=== PATIENT | male | born 1940 | race Caucasian/White ===

== ENCOUNTER 2021-08-04 19:53 | Emergency (ER) | payer MEDICARE, OTHER, SELFPAY ==
--- NOTE | ~2021-08-04 | CT_ITS ---
EXAMINATION: CT CHEST WITHOUT CONTRAST CLINICAL INFORMATION: Abnormal right lung apex noted on a recent CT of the cervical spine done earlier today. COMPARISON: CT cervical spine done earlier today. TECHNIQUE: Multidetector volumetric CT imaging of the chest was done. Axial MIP volume rendering provided. Sagittal and coronal reformatted images were obtained. This CT examination was performed using dose optimization techniques as appropriate, variously including the following: *Automated exposure control *Adjustment of mA and/or kV according to patient size (this includes techniques or standardized protocols for targeted exams where dose is matched to indication/reason for exam; i.e. extremities or head) *Use of iterative reconstruction technique DLP: 254 mGy-cm FINDINGS: LUNGS: Again noted irregular opacity in the right apex measuring approximately 1.8 x 1.2 cm (5:114) with linear bands that communicate to the pleural space and internal lucencies. 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 There is a background of centrilobular and paraseptal emphysematous changes with an upper lobe predominance. In the right major fissure but there are a few 0.3 cm nodularities (5:177) likely representing pulmonary lymph nodes. In the periphery of the right lower lobe there is a 0.3 cm subpleural nodularity (5:431) which could also represent a pleural lymph node or a focal area of pleural thickening. In the lingula there is a 0.2 cm pulmonary nodule (5:358). No focal airspace opacities. The main airways are patent. MEDIASTINUM: Normal heart size. No pericardial effusion. There are a few prominent but no pathologically enlarged mediastinal lymph nodes, for instance measuring up to 0.7 cm in maximum short axis in the lower pretracheal region (3:28). Coronary calcifications and atherosclerotic disease of the thoracic aorta which is of normal diameter. Normal appearance of the thyroid gland. PLEURA: Biapical pleural thickening/scarring. No pleural effusion or pneumothorax. AXILLA: Indeterminate calcified nodule in the superficial soft tissues of the left axillary region (3:19). No axillary lymphadenopathy or chest wall masses. UPPER ABDOMEN: Small hiatal hernia. There is a water density cyst in the right hepatic lobe measuring 1.5 cm (3:59). There are several additional too small to characterize hypodensities, for instance as identified in the left lobe on image 56 of series 3 which statistically also likely to represent simple cysts. OSSEOUS STRUCTURES: No acute or aggressive osseous abnormalities. Thoracic spondylosis. CT/CT chest wo con IMPRESSION: Irregular opacity in the right apex could represent a focal area of parenchymal scarring given adjacent architectural distortion and continuity to the pleural surfaces. However, an underlying neoplasia cannot be entirely excluded. If tissue sampling is not obtained, consider further evaluation with a short-term follow-up chest CT or a PET/CT. There is a 0.2 cm lingular nodule which could be also follow-up with the above recommend a study. 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 Background of emphysematous changes. Small hiatal hernia. Too small to characterize liver hypodensities which statistically are likely to represent simple cysts. If definite characterization is desired, further evaluation could be obtained with a dedicated liver ultrasound.
--- NOTE | ~2021-08-04 | CT_ITS ---
EXAMINATION: HEAD CT WITHOUT CONTRAST MAXILLOFACIAL CT WITHOUT CONTRAST CERVICAL SPINE CT WITHOUT CONTRAST CLINICAL INFORMATION: Fall, hit face. COMPARISON: None. TECHNIQUE: Contiguous axial imaging of the head was performed without the administration of IV contrast. Axial multidetector volumetric images were also performed through the facial bones without contrast from the frontal sinuses through the mandible. Multiplanar reconstructed images in coronal and sagittal orientations were submitted. Imaging of the cervical spine. Sagittal and coronal reconstructions. DOSE: 1832 mGy-cm FINDINGS: HEAD: There are foci of increased attenuation in the parenchyma of the left frontal lobe, the left parietal lobe. There are foci of increased attenuation in the harris matter of the right parietal lobe. This could represent petechial hemorrhages secondary to diffuse axonal injury. No extra-axial fluid collections. Harris to white matter differentiation is well preserved. There is cerebral volume loss with sulcal and ventricular prominence. Patchy periventricular and deep white matter hypodensities on chronic microangiopathic changes. Status post lens extraction. There is frontal soft tissue swelling and soft tissue hematoma. Small focus of increased density present in the soft tissues in this region. Partial opacification of the left mastoid air cells. Right mastoid air cells are aerated. No significant fluid opacification in the paranasal sinuses. MAXILLOFACIAL: There is bony irregularity of the nasal bones, with surrounding soft tissue swelling, concerning for an acute fracture. There is left periorbital soft tissue swelling. There is undulation/depression of the frontal and the posterior lateral wall of the left maxillary sinus. The findings are suspicious for sequela of trauma/fracture. There is no significant fluid in the left maxillary sinus. In the absence of fluid within the sinus, the fractures may be nonacute. No acute fractures seen of the mandible. Normal articulation of the temporomandibular joints. The pterygoid plates, zygomatic arches appear intact. The bony orbits appear intact. CERVICAL SPINE: Craniocervical articulations are maintained. Predental space is maintained. There is increased lordotic curvature of the cervical spine. Mild retrolisthesis of C3 on C4. Mild anterolisthesis of C6 on C7. No acute cervical spinal fractures seen. Multilevel disc degenerative changes, including moderate disc degeneration at C7-T1. No prevertebral soft tissue swelling. No adenopathy seen. Moderate emphysematous changes in the lung apices, more prominent on the right. There is airspace opacity, architectural distortion and spiculated appearance of the parenchyma in the right lung apex. There are no prior images available for comparison. CT/CT cervical spine wo con IMPRESSION: CT HEAD: 1. Multiple foci of increased attenuation within the parenchyma of the left frontal lobe, left parietal lobe and the right parietal lobe. This could represent petechial hemorrhages secondary to diffuse axonal injury. Consider further evaluation with MRI. Alternately, recommend short-term follow-up CT for reassessment. Neurology consultation as clinically warranted. 2. Partial opacification of the left mastoid air cells. CT FACIAL BONES: 1. Findings suspicious for nasal bone fracture. 2. Dysmorphic appearance of the frontal and posterolateral wall of the left maxillary sinus, with bony depression and undulation. Findings are suggestive of sequela of trauma/fracture. Given the absence of significant fluid in the left maxillary sinus, these findings may be nonacute. Clinically correlate. Further evaluation with MRI as clinically warranted. Surgical consultation as clinically warranted. CT CERVICAL SPINE: 1. No acute cervical spine fracture is seen. 2. Increased lordotic curvature of the cervical spine. Cervical spondylosis, detailed above. 3. Moderate emphysema in the right lung apex, with prominent airspace opacification with spiculated appearance and architectural distortion. Neoplastic etiology cannot be excluded. There are no priors available for comparison. Correlate with prior clinical history or imaging available. Recommend further evaluation with CT chest. This result was discussed with SHUKRI Cosby at 11:00 PM on 08/04/2021 and it was ascertained that the content and urgency of the report was understood at the time of direct communication.
[2021-08-04 20:11] VITALS: BP 134/71; PULSE 79; RESP 16; TEMP 36.5; O2SAT 97; BMI 25.1
--- NOTE | 2021-08-04 20:40 | ED_ITS ---
HPI - Fall General Chief Complaint: Fall Stated Complaint: FALL Time Seen by Provider: 08/04/21 20:31 Source: patient Mode of arrival: EMS Limitations: no limitations History of Present Illness HPI Narrative: 81-year-old male presents via EMS for facial injury due to fall that occurred just prior to arrival. Patient states he [place] the [place], and his legs became tired. He was going down a ramp, and he fell forward onto his face because his legs could not keep up. He had no chest pain, no shortness of breath, no dizziness, no lightheadedness. Patient is on aspirin but no other blood thinners. Denies headache, visual changes, teeth malocclusion, neck pain. Patient presents in C-collar, and has laceration to his bridge of his nose, his upper lip, and a hematoma on his frontal forehead. MD complaint: fall Onset (ago): hour(s) (1) Fall from: standing Fall witnessed: yes, by bystander Place fall occurred: other Loss of consciousness: none Prolonged down time: no Symptoms prior to fall: none Context: tripped/slipped Location of injury: face Severity: mild Severity scale (1-10): 3 Associated symptoms (after fall): denies, headache, neck pain, numbness, weakness, chest pain, shortness of breath, abdominal pain, hematuria, unable to walk, lightheaded, vertigo and confusion Related Data Allergies Allergy/AdvReac Type Severity Reaction Status Date / Time No Known Allergies Allergy Verified 08/04/21 20:38 Review of Systems Constitutional: Constitutional: Denies body ache(s), Denies chills, Denies fatigue, Denies fever(s), Denies headache(s), Denies malaise and Denies weakness Eyes: Eyes: Denies diplopia ENT: Denies vertigo, Denies dizziness, Denies otalgia, Denies headache(s), Denies mouth pain, Denies neck pain, Denies post nasal drip, Denies sinus pain, Denies sinus pressure, Denies sore throat and Denies throat swelling Cardiovascular: Cardiovascular: Denies chest pain, Denies syncope, Denies leg edema, Denies lightheadedness, Denies Loss of Consciousness, Denies palpitations and Denies dyspnea Respiratory: Respiratory: Denies chest congestion, Denies cough and Denies dyspnea Gastrointestinal: Gastrointestinal: Denies abdominal pain, Denies hem atochezia, Denies constipation, Denies diarrhea and Denies vomiting Musculoskeletal: Musculoskeletal: Reports no additional musculoskeletal compla ints and Denies neck pain Integumentary/Breasts: Comments: Lacerations to face Neurologic: Denies Abnormal speech present, Denies confusion, Denies vertigo, Denies dizziness, Denies syncope, Denies headache(s), Denies Sensory deficit (Neuro) and Denies weakness Psychiatric: Psychiatric: Denies anxiety, Denies confusion and Denies depressi on Endocrine: Endocrine: Denies fatigue and Denies palpitations Allergic/Immunologic: Allergic/Immunologic: Denies throat swelling PMFSH Past Medical History Medical History (Updated 08/05/21 @ 02:11 by SHUKRI Cosby) No known health problems Social History Social History Advance Directives: No Advance Directives Information Provided: Yes Physical Exam Vital Signs: Vital Signs: Last Vital Signs Temp 97.9 F 08/05/21 00:33 Pulse 73 08/05/21 00:33 Resp 16 08/05/21 00:33 BP 125/67 08/05/21 00:33 Pulse Ox 96 08/05/21 00:33 BMI result Body Mass Index 25.1 Const: General: comfortable, no acute distress, well developed, alert and awake; No confusion Nutritional Appearance: well nourished Orientation/consciousness: patient oriented x3 and No confusion Limitations: no limitations HENMT: Head: Yes normal to inspection, Yes normocephalic and Yes atraumatic Ears: hearing grossly normal bilaterally, external ears normal, TM's normal bilaterally and EAC's normal General nose exam: Normal external nose present Face and sinus: Yes normal facial exam and Yes sinuses nontender Mouth: Normal oral and palatal mucosa present Throat: Yes posterior oropharynx normal Eyes: Conjunctivae: conjunctivae normal Pupils: Equal, round and reactive pupils present EOM: EOMs intact bilaterally and No Nystagmus present Neck: Neck: Yes full ROM, Yes no lymphadenopathy and Yes supple Resp: Effort & Inspection: normal respiratory effort and able to speak in complete sentences Auscultation: clear to auscultation bilaterally, no crackles, no rales, no rhonchi and no wheezes Cardio: Rate: regular rate Rhythm: regular rhythm Heart sounds: S1 normal heart sound present and S2 normal heart sound present GI: Inspection: Yes normal to inspection Palpation (GI): Soft to palpation, nontender, no guarding and not rigid Percussion: Yes normal to percussion Auscultation: normal bowel sounds Skin: Other: Laceration to bridge of nose, laceration to upper lip, hematoma to right forehead Neuro: Other: Patient has fine tremor at baseline General: patient oriented x3, No confusion and Unable to assess gait Cranial nerves: Yes CN's II-XII intact bilaterally, Yes Facial sensation intact/muscles of mastication intact, Yes Equal, round and reactive pupils present, Yes Bilaterally intact EOM present, Yes Nystagmus not present, Yes Normal facial strength present, Yes Midline tongue present, Yes Ability to bilaterally rotate head present, Yes Ability to bilaterally elevate shoulders present and No Nystagmus present Cognition (Neuro): normal cognition Speech: No Abnormal speech present Gait exam (Neuro): Unable to assess gait Motor exam (neuro): 5/5 motor strength present throughout and Pronator motor function not present Sensory Exam: No Sensory deficit (Neuro) Deep tendon reflexes (DTR's): Right brachioradialis reflex intensity grade: 1+, Left brachioradialis reflex intensity grade: 1+, Right patellar reflex intensity grade: 1+ and Left patellar reflex intensity grade: 1+ Coordination: [id number] test normal and salome l-to-rodgers test normal Romberg Test: Negative Pupils: Normal pupillary reactivity/response: bilateral Extrem: General: Yes normal to inspection and Yes full ROM Psych: Appearance: grossly normal Affect: normal affect Attitude: cooperative Thought process: Normal thought process present Course Course Course Narrative: 81-year-old male presents for mechanical fall resulting in nasal bone fracture, question of neoplasm in right lung apex, left maxillary sinus abnormal appearance, increased attenuation within brain parenchyma which could represent hemorrhages from axonal injury. On exam, patient has lacerations to his face, has no tenderness over left maxillary sinus. CT imaging may represent own old injury. Patient is completely neurologically intact. CT chest shows possible neoplasm. Discussed case with Dr Mathew, who said it reasonable to admit patient to physician observation for MRI in the morning to evaluate question of petechial brain hemorrhages. Placed loose sutures in patient's lip and bridge of nose Patient labs are remarkable for white blood cell count of 14.8, glucose 201. COVID negative. Awaiting urine results, I just ordered troponin and EKG Discussed with Dr Mazariegos, who suggested I discuss with [facility] trauma. Discussed with trauma surgeon at [facility], , who will accept patient. He stated patient with a GCS of 15 and a completely benign neurological exam does not correlate with the CT finding of petechial hemorrhage. CT HEAD: 1. Multiple foci of increased attenuation within the parenchyma of the left frontal lobe, left parietal lobe and the right parietal lobe. This could represent petechial hemorrhages secondary to diffuse axonal injury. Consider further evaluation with MRI. Alternately, recommend short-term follow-up CT for reassessment. Neurology consultation as clinically warranted. 2. Partial opacification of the left mastoid air cells. ? CT FACIAL BONES: 1. Findings suspicious for nasal bone fracture. 2. Dysmorphic appearance of the frontal and posterolateral wall of the left maxillary sinus, with bony depression and undulation. Findings are suggestive of sequela of trauma/fracture. Given the absence of significant fluid in the left maxillary sinus, these findings may be nonacute. Clinically correlate. Further evaluation with MRI as clinically warranted. Surgical consultation as clinically warranted. ? CT CERVICAL SPINE: 1. No acute cervical spine fracture is seen. 2. Increased lordotic curvature of the cervical spine. Cervical spondylosis, detailed above. 3. Moderate emphysema in the right lung apex, with prominent airspace opacification with spiculated appearance and architectural distortion. Neoplastic etiology cannot be excluded. There are no priors available for comparison. Correlate with prior clinical history or imaging available. Recommend further evaluation with CT chest. ? CT/CT chest wo con IMPRESSION: ? Irregular opacity in the right apex could represent a focal area of parenchymal scarring given adjacent architectural distortion and continuity to the pleural surfaces. However, an underlying neoplasia cannot be entirely excluded. If tissue sampling is not obtained, consider further evaluation with a short-term follow-up chest CT or a PET/CT. ? There is a 0.2 cm lingular nodule which could be also follow-up with the above recommend a study. ? 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 ? Background of emphysematous changes. ? Small hiatal hernia. ? Too small to characterize liver hypodensities which statistically are likely to represent simple cysts. If definite characterization is desired, further evaluation could be obtained with a dedicated liver ultrasound. Procedures Laceration Laceration 1: Site: lip Size (cm): 1 Description: linear Depth: simple, single layer Local Anesthetic: lidocaine 1% Amount of anesthesia used (mL): 2 Pre-repair: wound explored, irrigated extensively and deep structures intact Skin layer closed with: vicryl Size (cm): 4-0 Number of sutures: 1 Technique: simple, interrupted Laceration 2: Site: face Size (cm): 3 Description: irregular Depth: simple, single layer Local Anesthetic: lidocaine 1% Amount of anesthesia used (mL): 2 Pre-repair: wound explored, irrigated extensively and deep structures intact Skin layer closed with: vicryl Size (cm): 4-0 Number of sutures: 2 Technique: simple, interrupted MDM - Fall Lab Data Result diagrams: 08/05/21 00:46 08/05/21 00:46 Labs: Lab Results 08/05/21 08/05/21 08/05/21 Range/Units 00:44 00:46 00:46 WBC 14.8 H (4.8-10.8) X10*3/uL RBC 4.22 L (4.60-5.80) X10*6/uL Hgb 13.0 L (14.0-18.0) g/dl Hct 38.7 L (42.0-52.0) % MCV 91.7 (80.0-98.0) fL MCH 30.8 (27.0-33.0) pg MCHC 33.6 (31.0-36.0) g/dl RDW 13.2 (11.0-16.0) % Plt Count 239 (160-400) X10*3/uL MPV 10.7 (9.4-12.4) fL Immature Gran % (Auto) 0.4 (0.0-0.4) % Neut % (Auto) 76.8 H (45-73) % Lymph % (Auto) 11.1 L (20-40) % Louisa % (Auto) 11.1 H (2-11) % Eos % (Auto) 0.4 (0-4) % Baso % (Auto) 0.2 (0-2) % Lymph # (Auto) 1.7 (1.2-4.9) X10*3/uL Louisa # (Auto) 1.7 H (0.1-1.2) X10*3/uL Eos # (Auto) 0.1 (0.0-0.4) X10*3/uL Baso # (Auto) 0.0 (0.0-0.2) X10*3/uL Abs Immat Gran (auto) 0.06 H (0.00-0.03) X10*3/uL Absolute Neuts (auto) 11.4 H (2.0-8.3) x10*3/uL Absolute Nucleated RBC 0.000 (0.0-0.012) X10*3/uL Nucleated RBC % (auto) 0.0 (0.0-0.2) /100WBC Smear Tech's Comments VERIFIED PT 11.4 (9.9-13.0) SEC INR 1.0 (0.9-1.1) APTT 31.0 (24.1-38.0) SEC Sodium (135-145) mmol/L Potassium (3.3-5.1) mmol/L Chloride (96-108) mmol/L Carbon Dioxide (22-29) mmol/L Anion Gap (12-20) BUN (9-16) mg/dL Creatinine (0.5-1.4) mg/dL Estim Creat Clear Calc Estimated GFR Random Glucose (60-115) mg/dL Calcium (8.4-10.2) mg/dL Total Bilirubin (0.0-1.0) mg/dL AST (5-37) U/L ALT (0-40) U/L Alkaline Phosphatase (39-117) U/L Total Protein (6.5-8.0) g/dL Albumin (3.5-5.0) g/dL COVID-19 (SANAZ) Negative (Negative) COVID-19 Clin Com See Note 08/05/21 Range/Units 00:46 WBC (4.8-10.8) X10*3/uL RBC (4.60-5.80) X10*6/uL Hgb (14.0-18.0) g/dl Hct (42.0-52.0) % MCV (80.0-98.0) fL MCH (27.0-33.0) pg MCHC (31.0-36.0) g/dl RDW (11.0-16.0) % Plt Count (160-400) X10*3/uL MPV (9.4-12.4) fL Immature Gran % (Auto) (0.0-0.4) % Neut % (Auto) (45-73) % Lymph % (Auto) (20-40) % Louisa % (Auto) (2-11) % Eos % (Auto) (0-4) % Baso % (Auto) (0-2) % Lymph # (Auto) (1.2-4.9) X10*3/uL Louisa # (Auto) (0.1-1.2) X10*3/uL Eos # (Auto) (0.0-0.4) X10*3/uL Baso # (Auto) (0.0-0.2) X10*3/uL Abs Immat Gran (auto) (0.00-0.03) X10*3/uL Absolute Neuts (auto) (2.0-8.3) x10*3/uL Absolute Nucleated RBC (0.0-0.012) X10*3/uL Nucleated RBC % (auto) (0.0-0.2) /100WBC Smear Tech's Comments PT (9.9-13.0) SEC INR (0.9-1.1) APTT (24.1-38.0) SEC Sodium 137 (135-145) mmol/L Potassium 3.5 (3.3-5.1) mmol/L Chloride 104 (96-108) mmol/L Carbon Dioxide 25 (22-29) mmol/L Anion Gap 12 (12-20) BUN 18 H (9-16) mg/dL Creatinine 0.82 (0.5-1.4) mg/dL Estim Creat Clear Calc 69.5 Estimated GFR > 60 Random Glucose 201 H (60-115) mg/dL Calcium 9.4 (8.4-10.2) mg/dL Total Bilirubin 0.5 (0.0-1.0) mg/dL AST 20 (5-37) U/L ALT 24 (0-40) U/L Alkaline Phosphatase 70 (39-117) U/L Total Protein 6.3 L (6.5-8.0) g/dL Albumin 3.8 (3.5-5.0) g/dL COVID-19 (SANAZ) (Negative) COVID-19 Clin Com Discharge Plan Discharge Clinical Impression: Lung mass Fall Qualifiers: Encounter type: initial encounter Qualified Code(s): W19.XXXA - Unspecified fall, initial encounter Fracture of nasal bone Qualifiers: Encounter type: initial encounter Fracture type: open Qualified Code(s): S02.2XXB - Fracture of nasal bones, initial encounter for open fracture Face lacerations Qualifiers: Encounter type: initial encounter Qualified Code(s): S01.81XA - Laceration without foreign body of other part of head, initial encounter Diffuse axonal injury Qualifiers: Encounter type: initial encounter Loss of consciousness presence/duration: without LOC Qualified Code(s): S06.2X0A - 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 These need to come out 5 days from now which is August 10. Please apply bacitracin, and wash daily with soap and water. Keep dry. If redness swelling or warmth develops, please return to be seen. CT of your chest showed abnormal findings. Please follow-up with your primary care provider You have a nasal bone fracture, and will need to follow-up with ENT. You also need to have oral antibiotics.
--- NOTE | 2021-08-04 21:40 | PC.NURSE ---
PT TO CT IN STRETCHER. PT RETURNS TO ROOM IN NAD.
[2021-08-04] MEDS: Lidocaine HCl 1 % 20 ML VIAL 15 ML INFILTRATI (21:57)
[2021-08-04 22:34] VITALS: BP 135/75; PULSE 73; RESP 16; TEMP 36.9; O2SAT 98
--- NOTE | 2021-08-04 22:49 | PC.NURSE ---
pt remains in NAD at this time. bleeding controlled on face.
[2021-08-05 00:33] VITALS: BP 125/67; PULSE 73; RESP 16; TEMP 36.6; O2SAT 96
[2021-08-05 00:54] LABS: Basophils Percent Auto 0.2 % (0-2); Eosinophils Absolute Auto 0.1 X10*3/uL (0.0-0.4); Eosinophils Percent Auto 0.4 % (0-4); Hematocrit 38.7 % (42.0-52.0); Imm Gran Abs Auto 0.06 X10*3/uL (0.00-0.03); Imm Gran Pct Auto 0.4 % (0.0-0.4); Lymphocytes Absolute Auto 1.7 X10*3/uL (1.2-4.9); Lymphocytes Percent Auto 11.1 % (20-40); MANUAL DIFF FLAG SCAN; Mean Corpuscular HGB Conc 33.6 g/dl (31.0-36.0); Mean Corpuscular Hemoglobin 30.8 pg (27.0-33.0); Mean Corpuscular Volume 91.7 fL (80.0-98.0); Mean Platelet Volume 10.7 fL (9.4-12.4); Monocytes Absolute Auto 1.7 X10*3/uL (0.1-1.2); Monocytes Percent Auto 11.1 % (2-11); Neutrophils Absolute Auto 11.4 x10*3/uL (2.0-8.3); Neutrophils Percent Auto 76.8 % (45-73); Platelet Count 239 X10*3/uL (160-400); Red Blood Count 4.22 X10*6/uL (4.60-5.80); Red Cell Distribution Width 13.2 % (11.0-16.0); SCAN SMEAR FLAG 1; White Blood Count 14.8 X10*3/uL (4.8-10.8)
[2021-08-05 01:04] LABS: Prothrombin Time 11.4 SEC (9.9-13.0)
[2021-08-05 01:11] LABS: COVID-19 Test Negative (Negative)
[2021-08-05 01:12] LABS: Alanine Aminotransferase 24 U/L (0-40); Albumin Level 3.8 g/dL (3.5-5.0); Alkaline Phosphatase 70 U/L (39-117); Anion Gap 12 (12-20); Aspartate Amino Transferase 20 U/L (5-37); Bilirubin Total 0.5 mg/dL (0.0-1.0); Blood Urea Nitrogen 18 mg/dL (9-16); Calcium 9.4 mg/dL (8.4-10.2); Carbon Dioxide 25 mmol/L (22-29); Chloride 104 mmol/L (96-108); Creatinine Clr Calc Pharmacy 69.5; Estimated Glomerular Filt Rate > 60; Glucose Random 201 mg/dL (60-115); Potassium 3.5 mmol/L (3.3-5.1); Sodium 137 mmol/L (135-145); Total Protein 6.3 g/dL (6.5-8.0)
[2021-08-05 01:37] LABS: SLIDE REVIEW VERIFIED
--- NOTE | 2021-08-05 02:09 | ECG_ITS ---
Test Reason : FALL Blood Pressure : / mmHG Vent. Rate : 069 BPM Atrial Rate : 069 BPM P-R Int : 264 ms QRS Dur : 156 ms QT Int : 424 ms P-R-T Axes : 031 055 030 degrees QTc Int : 454 ms Sinus rhythm with 1st degree A-V block Right bundle branch block Abnormal ECG No previous ECGs available Referred By: Brianna Davis Electronically Signed By:SABRINA SALDIVAR MD
--- NOTE | 2021-08-05 02:36 | PC.NURSE ---
@ 6331 SHUKRI Marsh REQUEST CALL OUT TO [facility] PT [place] LINE [phone] PT INFO TAKEN AND THEN JEFFERY TAKES OVER CALL
--- NOTE | 2021-08-05 02:50 | PC.NURSE ---
@[phone] RETURN CALL FROM [facility] [place] REQUESTING TO SPEAK WITH SHUKRI GIL TAKES OVER CALL RIGHT AWAY
[2021-08-05 03:09] VITALS: BP 135/69; PULSE 70; RESP 16; TEMP 36.6; O2SAT 98
--- NOTE | 2021-08-05 03:13 | PC.NURSE ---
@ [phone] [facility] CALLED FOR ALS TRANSPORT TO [facility], AT SHUKRI GIL REQUEST AND ACCEPTANCE TO BY DR CARI GIL
--- NOTE | 2021-08-05 03:15 | PC.NURSE ---
This RN assisting primary RN, to medicate with meds as ordered. This RN notes that pt has abx ordered, no BC ordered or drawn. This RN attempting to find SHUKRI Ring however unsuccessful as she has left for evening. This RN verified with Dr Mazariegos, who rec'd sign out from Carol if he would like BC. Dr Mazariegos states pt does not require cultures but infors this RN to carry out Carol's order for abx.
[2021-08-05 03:22] LABS: Appearance Urine CLEAR; Color Urine YELLOW; Glucose Urine UA 500 MG/DL (NEG); Leukocyte Esterase Urine NEG (NEG); Nitrite Urine NEG (NEG); UACC Culture Trigger NO; Urine Blood TRACE (NEG); Urine Ketones 5 MG/DL (NEG); Urine Protein NEG (NEG-TRACE)
[2021-08-05] MEDS: Diphth,Pertus(ACell),Tet Adult 0.5 ML SYRINGE IM (03:23)
[2021-08-05] MEDS: 0.9 % Sodium Chloride 1,000 ML 999 ML IV (03:24)
--- NOTE | 2021-08-05 03:31 | PC.NURSE ---
consent for transfer signed by pt. pt medicated as per emar. pt awaiting for ems for transfer to [facility]. Pt remains alert, respirations easy, n/l. skin w/d.
--- NOTE | 2021-08-05 03:31 | PC.NURSE ---
Pt medicated per OCT. Pt resting on stretcher in NAD, breathing with ease on RA, VSS. Pt [id number], speaking in complete, clear sentences, managing secretions, endorses mild pain to nose but offers no additional complaints/concerns. Pt is on bedside media monitor, aware and agreeable to plan for interfacility transport by ambulance. Pt stretcher is in lowest locked position, rails raised, call fay within reach.
[2021-08-05 03:36] LABS: Troponin-I High Sensitivity 8.3 ng/L (<3.5-35.0)
--- NOTE | 2021-08-05 03:42 | PC.NURSE ---
EMS HERE FOR TRANSPORT TO [facility].
[2021-08-05 03:43] VITALS: BP 135/62; PULSE 71; RESP 16; O2SAT 98
[2021-08-05 03:56] LABS: Mucus Urine 1+ /LPF; Squamous Epithelial Cell Urine TRACE /LPF; WBC Urine 0-2 /HPF (0-4)
--- NOTE | 2021-08-05 04:01 | PC.NURSE ---
REPORT GIVEN TO FANG GONZALES AT [facility].
== END 2021-08-05 04:03 | disposition short-term general hospital (02) ==
PROVIDERS: Physician Assistant; Emergency Provider Emergency Medicine; PCP Physician Assistant
DX: S06.2X0A Diffuse traumatic brain injury without loss of consciousness, initial encounter (principal); S02.2XXB Fracture of nasal bones, initial encounter for open fracture; S01.511A Laceration without foreign body of lip, initial encounter; S00.83XA Contusion of other part of head, initial encounter; R91.8 Other nonspecific abnormal finding of lung field; W18.30XA Fall on same level, unspecified, initial encounter; Y93.01 Activity, walking, marching and hiking; Y92.59 Other trade areas as the place of occurrence of the external cause; Y99.9 Unspecified external cause status; Z20.822 Contact with and (suspected) exposure to COVID-19
CPT/HCPCS: 12013; 36415; 70450; 70486; 71250; 72125; 80053; 81001; 84484; 85025; 85610; 85730; 87635; 90471; 90715; 93005; 96361; 96374; 99285; J0690